=== PATIENT | female | born 1950 | race American Indian/Alaskan Native ===

== ENCOUNTER 2019-04-05 14:18 | Emergency (ER) | payer MEDICARE ==
[2019-04-05 14:42] VITALS: BP 129/83
--- NOTE | 2019-04-05 14:44 | Event Note ---
ED Screening Note Date of service: 04/05/19 Time: 14:38 ED Screening Note: 68 y/o comes in for epigastric pain with vomiting. Had a stress test on 03/26/19 at [facility]. Hard to swallow food not able to go alway down. This initial assessment/diagnostic orders/clinical plan/treatment(s) is/are subject to change based on patients health status, clinical progression and re- assessment by fellow clinical providers in the ED. Further treatment and workup at subsequent clinical providers discretion. Patient/guardian urged not to elope from the ED as their condition may be serious if not clinically assessed and managed. Initial orders include:
[2019-04-05 16:07] LABS: Hematocrit 47.7 % (30.3-42.9); Hemoglobin 16.2 gm/dl (10.1-14.3); Mean Corpuscular HGB Conc 34 % (30-34); Mean Corpuscular Volume 100 fl (79-97); Platelet Count 279 K/mm3 (140-440); Red Blood Count 4.79 M/mm3 (3.65-5.03); Red Cell Distribution Width 14.9 % (13.2-15.2)
[2019-04-05 16:30] LABS: Alanine Aminotransferase 41 units/L (7-56); Albumin 4.7 g/dL (3.9-5); BUN/Creatinine Ratio 13; Blood Urea Nitrogen 10 mg/dL (7-17); Calcium 10.2 mg/dL (8.4-10.2); Hemolysis Index 22
--- NOTE | 2019-04-05 21:12 | XRay Report ---
PROCEDURE: XR CHEST ROUTINE 2V TECHNIQUE: PA and lateral chest radiographs were obtained. HISTORY: chest pain COMPARISONS: None. FINDINGS: Heart: Normal. Mediastinum/Vessels: Normal. Lungs/Pleural space: Normal. Bony thorax: No acute osseous abnormality. IMPRESSION: Normal examination. This document is electronically signed by Justice Frias MD., April 05 2019 09:10:09 PM ET
== END 2019-04-05 19:43 | disposition left against medical advice (07) ==
LOC: ED 14:18
DX: R07.89 Other chest pain (principal); R06.02 Shortness of breath
CPT/HCPCS: 36415; 71046; 80053; 83690; 84484; 85027; 93005; 93010; 99283

== ENCOUNTER 2019-04-20 06:32 | Day surgery (SDC) | payer MEDICARE ==
[2019-04-20] MEDS: NACL 0.9% 500 ML 500 ML IV SCH ×3 (07:30→09:30)
[2019-04-20 07:31] LABS: Basophils # (Auto) 0.1 K/mm3 (0.0-0.1); Basophils % (Auto) 1.1 % (0.0-1.8); Eosinophils # (Auto) 0.1 K/mm3 (0.0-0.4); Hematocrit 43.2 % (30.3-42.9); Hemoglobin 14.7 gm/dl (10.1-14.3); Lymphocytes # (Auto) 0.9 K/mm3 (1.2-5.4); Lymphocytes % (Auto) 11.4 % (13.4-35.0); Mean Corpuscular HGB Conc 34 % (30-34); Mean Corpuscular Volume 99 fl (79-97); Monocytes # (Auto) 0.7 K/mm3 (0.0-0.8); Monocytes % (Auto) 8.5 % (0.0-7.3); Platelet Count 257 K/mm3 (140-440); Red Blood Count 4.36 M/mm3 (3.65-5.03); Red Cell Distribution Width 14.6 % (13.2-15.2)
[2019-04-20 07:41] LABS: INR 1.01 (0.87-1.13); Partial Thromboplastin Time 23.7 Sec. (24.2-36.6)
[2019-04-20 07:44] LABS: BUN/Creatinine Ratio 11; Blood Urea Nitrogen 9 mg/dL (7-17); Calcium 9.2 mg/dL (8.4-10.2); Hemolysis Index 95
[2019-04-20] MEDS ORDERED: ECOTRIN PO NR (08:00)
[2019-04-20] MEDS: CALAN ONE ×2 (09:11→09:39)
[2019-04-20] MEDS: VERSED ONE ×2 (09:11→09:36)
[2019-04-20] MEDS: XYLOCAINE 2% INFILTRATI ONE ×2 (09:11→09:37)
[2019-04-20] MEDS: SUBLIMAZE ONE ×2 (09:11→09:36)
[2019-04-20] MEDS: HEPARIN/NS 5000 UNIT/500ML(CATH LAB) 1,000 ML IR ONE ×2 (09:12→09:30)
[2019-04-20] MEDS: HEPARIN 10,000 UNITS/10 ML ONE ×2 (09:12→09:39)
[2019-04-20] MEDS: NITROGLYCERIN SYRINGE 3 ML ONE ×2 (09:13→09:39)
--- NOTE | 2019-04-20 10:05 | Discharge Summary ---
Short Stay Discharge Plan Activity: advance as tolerated Weight Bearing Status: Full Weight Bearing Diet: low fat, low cholesterol, low salt Wound: keep clean and dry Special Instructions: smoking cessation, no heavy lifting (3 days) Additional Instructions: STOP SMOKING ADVISED. Follow up with: RADHA REYNOLDS MD [Other] - 7 Days KACIE CHAIDEZ MD [Staff Physician] - 7 Days
--- NOTE | 2019-04-20 10:27 | Cardiac Catherization Report ---
REASON FOR PROCEDURE: The patient is a 69-year-old woman with hypertension and chronic tobacco abuse, who continues to smoke cigarettes. She presented with chest pain. She underwent an exercise thallium stress testing where she exercised for 6 minutes of a Juliocesar protocol, normal thallium. Despite the normal stress test, she continues to complain of chest pain, prompting a recommendation for cardiac catheterization. PROCEDURE: 1. Left heart catheterization. 2. Selective left and right coronary angiography. 3. Left ventricle angiography. 4. Sedation time, start 0936 hours, end 0950 hours. The patient was prepped and draped in a sterile fashion after informed consent. The right radial cath site was prepped and draped after a negative Blu's test. The right radial artery was entered using Seldinger technique followed by placement of a 6-Pashto hydrophilic sheath. Routine radial cocktail was administered via the sheath. Selective left and right coronary angiography was then performed, using a #3.5 left Chandra, and a #4 right Chandra. A pigtail catheter was used for left ventricle angiography. The catheters were removed, sheath removed and hemostasis achieved using a TR band. The patient was returned to the postprocedure unit in stable condition. There were no complications. FINDINGS: HEMODYNAMICS: Left ventricular end-diastolic pressure was 11. Ascending aortic pressure was 116/73. There was no significant pressure gradient on pullback across the aortic valve. CORONARY ANGIOGRAPHY: The left main coronary artery was free of significant disease. The left anterior descending artery and its diagonal branches were free of significant disease. A small to medium size ramus intermedius artery contained mild luminal irregularities. The circumflex system contained diffuse mild atherosclerosis of its proximal and mid segment, with no significant obstructive lesions. The right coronary artery was dominant. This vessel also contained diffuse mild atherosclerosis of its mid segment, with no significant obstructive lesions. Left ventricular systolic function was at lower limits of normal, ejection fraction 50-55%. CONCLUSION: 1. Mild diffuse nonobstructive atherosclerosis of the circumflex and right coronary arteries as above. 2. No significant obstructive coronary lesions on angiography. 3. Well preserved left ventricular systolic function, ejection fraction 50-55%. RECOMMENDATION: Aggressive risk factor modification, including strict recommendations for smoking cessation. [facility]# [id number] CA/NTS
[2019-04-20] MEDS ORDERED: NACL 0.9% 1000 ML 1,000 ML IV SCH (11:00)
[2019-04-20 15:31] VITALS: BP 126/85
== END 2019-04-20 16:05 | disposition home or self-care (01) ==
LOC: CATHLABREC 06:32
PROVIDERS: ATTEND Internal Medicine Cardiovascular Disease
DX: I25.10 Atherosclerotic heart disease of native coronary artery without angina pectoris (principal); I10 Essential (primary) hypertension; J44.9 Chronic obstructive pulmonary disease, unspecified; K21.9 Gastro-esophageal reflux disease without esophagitis; F17.210 Nicotine dependence, cigarettes, uncomplicated; M19.90 Unspecified osteoarthritis, unspecified site; Z90.710 Acquired absence of both cervix and uterus; Z85.89 Personal history of malignant neoplasm of other organs and systems; Z79.899 Other long term (current) drug therapy; Z98.890 Other specified postprocedural states; Z85.068 Personal history of other malignant neoplasm of small intestine
CPT/HCPCS: 36415; 80048; 85025; 85610; 85730; 93005; 93010; 93458; 99156; C1894; J1644; J2250; J3010; J7040; Q9967

== ENCOUNTER 2021-07-20 17:50 | Emergency (ER) | payer MEDICARE ==
[2021-07-20] MEDS ORDERED: ASPIRIN 325 MG TAB PO ONE (18:00)
--- NOTE | 2021-07-20 18:01 | Event Note ---
ED Screening Note Date of service: 07/20/21 Time: 18:00 ED Screening Note: 71-year-old -B[place] female presents to the emergency room complaining of difficulty breathing and chest pain. Patient states she has had this in the past and she ended up having a urinary tract infection. Patient denies any urinary symptoms at this time. It is noted that patient is in mild distress. This initial assessment/diagnostic orders/clinical plan/treatment(s) is/are subject to change based on patients health status, clinical progression and re- assessment by fellow clinical providers in the ED. Further treatment and workup at subsequent clinical providers discretion. Patient/guardian urged not to elope from the ED as their condition may be serious if not clinically assessed and managed. Initial orders include: Chest pain protocol has been initiated.
[2021-07-20] MEDS ORDERED: SODIUM CHLORIDE 0.9% 1000 ML 1,000 ML IV ONE (18:09)
[2021-07-20] MEDS ORDERED: MORPHINE 2 MG/1 ML INJ IV ONE (18:09)
[2021-07-20 18:53] LABS: Basophils # (Auto) 0.1 K/mm3 (0.0-0.1); Eosinophils % (Auto) 0.1 % (0.0-4.3); Hematocrit 43.9 % (30.3-42.9); Hemoglobin 14.5 gm/dl (10.1-14.3); Lymphocytes # (Auto) 0.8 K/mm3 (1.2-5.4); Lymphocytes % (Auto) 9.3 % (13.4-35.0); Mean Corpuscular HGB Conc 33 % (30-34); Mean Corpuscular Volume 100 fl (79-97); Monocytes # (Auto) 0.5 K/mm3 (0.0-0.8); Platelet Count 329 K/mm3 (140-440); Red Blood Count 4.39 M/mm3 (3.65-5.03); Red Cell Distribution Width 15.5 % (13.2-15.2)
[2021-07-20 18:56] LABS: Alanine Aminotransferase 35 units/L (7-56); Albumin 4.6 g/dL (3.9-5); BUN/Creatinine Ratio 9; Blood Urea Nitrogen 7 mg/dL (7-17); Calcium 10.3 mg/dL (8.4-10.2); Hemolysis Index 16
--- NOTE | 2021-07-20 18:56 | XRay Report ---
CHEST 2 VIEWS INDICATION / CLINICAL INFORMATION: Chest Pain. COMPARISON: 04/05/2019 FINDINGS: SUPPORT DEVICES: None. HEART / MEDIASTINUM: No significant abnormality. LUNGS / PLEURA: No significant pulmonary or pleural abnormality. No pneumothorax. ADDITIONAL FINDINGS: No significant additional findings. IMPRESSION: 1. No acute findings. Signer Name: Eduardo Ackerman MD Signed: 07/20/2021 6:51 PM Workstation Name: [id number]
--- NOTE | 2021-07-20 19:10 | Emergency Department Report ---
ED Chest Pain HPI - General Chief Complaint: Chest Pain Stated Complaint: CHEST PAIN/SOB Time Seen by Provider: 07/20/21 18:03 Source: patient Mode of arrival: Ambulatory Limitations: No Limitations - History of Present Illness Initial Comments: Patient is a 71-year-old F Estonian female with past medical history hypertension who is presenting with chest discomfort. Patient states that she woke up at approximately 8 AM and felt well. At 9 AM she started having chest pain which she states was a sharp pain in the center chest. Is worse with deep breathing. This is associated with shortness of breath. Patient also states she has some dizziness especially when she stands and she felt very shaky especially when this first started. Some of the shakiness is slightly better. Patient states she has a mild dry cough that is chronic. Patient has been vaccinated for COVID-19 and received 2 shots. -: Sudden Severity scale (0 -10): 8 Quality: sharp re: dyspnea. denies: nausea, vomting, diaphoresis Other Symptoms: denies: fever, syncope - Related Data Home Medications Medication Instructions Recorded Confirmed Last Taken Albuterol Sulfate [Ventolin HFA] 2 puff IH Q4H PRN 04/17/15 04/20/19 04/19/19 2 Gabapentin 600 mg PO TID 04/20/19 04/20/19 04/19/19 600 mg Sucralfate [Carafate] 1 gm PO BID 04/20/19 04/20/19 04/19/19 1 gm amLODIPine 10 mg PO DAILY 04/20/19 04/20/19 04/19/19 10 mg raNITIdine HCl [Zantac] 150 mg PO BID 04/20/19 04/20/19 04/19/19 150 mg Previous Rx's Medication Instructions Recorded Last Taken Type Famotidine [Pepcid] 40 mg PO QHS #10 tablet 07/20/21 Unknown Rx traMADoL [Ultram] 50 mg PO Q6HR PRN #12 tablet 07/20/21 Unknown Rx Allergies Allergy/AdvReac Type Severity Reaction Status Date / Time No Known Allergies Allergy Verified 04/17/15 13:46 Heart Score - HEART Score History: Slightly suspicious EKG: Non-specific Age: > 65 Risk factors: 1-2 risk factors Troponin: < normal limit HEART Score: 4 - EKG Read Time Time EKG Completed: 18:02 EKG Read Time: 18:02 ED Review of Systems ROS: Stated complaint: CHEST PAIN/SOB Other details as noted in HPI Comment: All other systems reviewed and negative ED Past Medical Hx - Past Medical History Previous Medical History?: Yes Hx Hypertension: Yes Hx GERD: Yes Hx Arthritis: Yes (neck) Hx COPD: Yes Additional medical history: Diverticulitis, hiatal hernia, neuropathy. Darions Syndrome - Surgical History Additional Surgical History: stress test 03/26/2019 - Social History Smoking Status: Current Every Day Smoker - Medications Home Medications: Home Medications Medication Instructions Recorded Confirmed Last Taken Type Albuterol Sulfate [Ventolin HFA] 2 puff IH Q4H PRN 04/17/15 04/20/19 04/19/19 History 2 Gabapentin 600 mg PO TID 04/20/19 04/20/19 04/19/19 History 600 mg Sucralfate [Carafate] 1 gm PO BID 04/20/19 04/20/19 04/19/19 History 1 gm amLODIPine 10 mg PO DAILY 04/20/19 04/20/19 04/19/19 History 10 mg raNITIdine HCl [Zantac] 150 mg PO BID 04/20/19 04/20/19 04/19/19 History 150 mg Famotidine [Pepcid] 40 mg PO QHS #10 tablet 07/20/21 Unknown Rx traMADoL [Ultram] 50 mg PO Q6HR PRN #12 tablet 07/20/21 Unknown Rx ED Physical Exam - General Limitations: No Limitations General appearance: alert, in distress (Patient appears very uncomfortable but is nontoxic appearing) - Head Head exam: Present: atraumatic, normocephalic - Eye Eye exam: Present: normal appearance. Absent: PERRL, EOMI - ENT ENT exam: Present: mucous membranes moist - Neck Neck exam: Present: normal inspection - Respiratory Respiratory exam: Present: normal lung sounds bilaterally. Absent: respiratory distress, wheezes, rales, rhonchi - Cardiovascular Cardiovascular Exam: Present: normal rhythm, tachycardia. Absent: systolic murmur, diastolic murmur, rubs, gallop - GI/Abdominal GI/Abdominal exam: Present: soft, normal bowel sounds. Absent: distended, tenderness, guarding, rebound - Extremities Exam Extremities exam: Present: normal inspection - Back Exam Back exam: Present: normal inspection - Neurological Exam Neurological exam: Present: alert, oriented X3 - Psychiatric Psychiatric exam: Present: normal affect, normal mood - Skin Skin exam: Present: warm, dry, intact, normal color. Absent: rash ED Course Vital Signs 07/20/21 07/20/21 17:55 19:58 Temperature 98.9 F Pulse Rate 132 H Respiratory 16 18 Rate Blood Pressure 129/86 [Right] O2 Sat by Pulse 96 Oximetry - Reevaluation(s) Reevaluation #1: 07/20/21 21:57 At this point the patient stating that most of her discomfort is in the left lower quadrant. Patient does have a history of hiatal hernia. Her symptoms may have been exacerbated by the steroids that she is taking. Patient is on a 10-day course. Patient has been ruled out at this time for pneumonia pulmonary embolus acute IN pericarditis. There is no abnormality to her electrolytes and CBC. Patient may have just had some increased pain associated with a hiatal hernia. Patient will be DC'd home with meds for pain. Because her heart score is 4 secondary to her age sent a referral to for the patient to see cardiology as a precaution. Symptoms may have 07/20/21 22:00 ED Medical Decision Making - Lab Data Result diagrams: 07/20/21 18:09 07/20/21 18:09 Lab Results 07/20/21 07/20/21 07/20/21 Range/Units 18:09 18:09 18:09 WBC 9.1 (4.5-11.0) K/mm3 RBC 4.39 (3.65-5.03) M/mm3 Hgb 14.5 H (10.1-14.3) gm/dl Hct 43.9 H (30.3-42.9) % MCV 100 H (79-97) fl MCH 33 H (28-32) pg MCHC 33 (30-34) % RDW 15.5 H (13.2-15.2) % Plt Count 329 (140-440) K/mm3 Lymph % (Auto) 9.3 L (13.4-35.0) % [place]ila % (Auto) 5.0 (0.0-7.3) % Eos % (Auto) 0.1 (0.0-4.3) % Baso % (Auto) 1.0 (0.0-1.8) % Lymph # (Auto) 0.8 L (1.2-5.4) K/mm3 Gila # (Auto) 0.5 (0.0-0.8) K/mm3 Eos # (Auto) 0.0 (0.0-0.4) K/mm3 Baso # (Auto) 0.1 (0.0-0.1) K/mm3 Seg Neutrophils % 84.6 H (40.0-70.0) % Seg Neutrophils # 7.7 (1.8-7.7) K/mm3 D-Dimer (0-234) ng/mlDDU Sodium 138 (137-145) mmol/L Potassium 3.6 (3.6-5.0) mmol/L Chloride 99.5 (98-107) mmol/L Carbon Dioxide 20 L (22-30) mmol/L Anion Gap 22 mmol/L BUN 7 (7-17) mg/dL Creatinine 0.8 (0.6-1.2) mg/dL Estimated GFR > 60 ml/min BUN/Creatinine Ratio 9 % Glucose 126 H (65-100) mg/dL Calcium 10.3 H (8.4-10.2) mg/dL Total Bilirubin 0.30 (0.1-1.2) mg/dL AST 82 H (5-40) units/L ALT 35 (7-56) units/L Alkaline Phosphatase 73 (35-129) units/L Troponin T < 0.010 (0.00-0.029) ng/mL Total Protein 8.6 H (6.3-8.2) g/dL Albumin 4.6 (3.9-5) g/dL Albumin/Globulin Ratio 1.2 % Lipase 63 H (13-60) units/L Urine Color (Yellow) Urine Turbidity (Clear) Urine pH (5.0-7.0) Ur Specific [place] (1.003-1.030) Urine Protein (Negative) mg/dL Urine Glucose (UA) (Negative) mg/dL Urine Ketones (Negative) mg/dL Urine Blood (Negative) Urine Nitrite (Negative) Urine Bilirubin (Negative) Urine Urobilinogen (<2.0) mg/dL Ur Leukocyte Esterase (Negative) Urine WBC (Auto) (0.0-6.0) /HPF Urine RBC (Auto) (0.0-6.0) /HPF U Epithel Cells (Auto) (0-13.0) /HPF Urine Mucus /HPF 07/20/21 07/20/21 07/20/21 Range/Units 18:15 20:14 Unknown WBC (4.5-11.0) K/mm3 RBC (3.65-5.03) M/mm3 Hgb (10.1-14.3) gm/dl Hct (30.3-42.9) % MCV (79-97) fl MCH (28-32) pg MCHC (30-34) % RDW (13.2-15.2) % Plt Count (140-440) K/mm3 Lymph % (Auto) (13.4-35.0) % Gila % (Auto) (0.0-7.3) % Eos % (Auto) (0.0-4.3) % Baso % (Auto) (0.0-1.8) % Lymph # (Auto) (1.2-5.4) K/mm3 [place] # (Auto) (0.0-0.8) K/mm3 Eos # (Auto) (0.0-0.4) K/mm3 Baso # (Auto) (0.0-0.1) K/mm3 Seg Neutrophils % (40.0-70.0) % Seg Neutrophils # (1.8-7.7) K/mm3 D-Dimer 185.46 (0-234) ng/mlDDU Sodium (137-145) mmol/L Potassium (3.6-5.0) mmol/L Chloride (98-107) mmol/L Carbon Dioxide (22-30) mmol/L Anion Gap mmol/L BUN (7-17) mg/dL Creatinine (0.6-1.2) mg/dL Estimated GFR ml/min BUN/Creatinine Ratio % Glucose (65-100) mg/dL Calcium (8.4-10.2) mg/dL Total Bilirubin (0.1-1.2) mg/dL AST (5-40) units/L ALT (7-56) units/L Alkaline Phosphatase (35-129) units/L Troponin T < 0.010 (0.00-0.029) ng/mL Total Protein (6.3-8.2) g/dL Albumin (3.9-5) g/dL Albumin/Globulin Ratio % Lipase (13-60) units/L Urine Color Yellow (Yellow) Urine Turbidity Clear (Clear) Urine pH 6.0 (5.0-7.0) Ur Specific [place] 1.014 (1.003-1.030) Urine Protein 30 mg/dl (Negative) mg/dL Urine Glucose (UA) Neg (Negative) mg/dL Urine Ketones Neg (Negative) mg/dL Urine Blood Neg (Negative) Urine Nitrite Neg (Negative) Urine Bilirubin Neg (Negative) Urine Urobilinogen 2.0 (<2.0) mg/dL Ur Leukocyte Esterase Neg (Negative) Urine WBC (Auto) 1.0 (0.0-6.0) /HPF Urine RBC (Auto) 1.0 (0.0-6.0) /HPF U Epithel Cells (Auto) 5.0 (0-13.0) /HPF Urine Mucus 1+ /HPF - EKG Data -: EKG Interpreted by Nh - EKG Data 07/20/21 19:39 EKG shows sinus tachycardia with a rate of 120. [place] normal intervals are normal. Occasional PVCs. No ST segment elevations or depressions. - Radiology Data Patient: SURI HUDSON MR#: [id number] : 1950 Acct:[id number] Age/Sex: 71 / F ADM Date: 07/20/21 Loc: ED Attending Dr: Ordering Physician: KERMIT DENNEY Date of Service: 07/20/21 Procedure(s): XR chest routine 2V Accession Number(s): [id number] cc: KERMIT DENNEY Fluoro Time In Minutes: CHEST 2 VIEWS INDICATION / CLINICAL INFORMATION: Chest Pain. COMPARISON: 04/05/2019 FINDINGS: SUPPORT DEVICES: None. HEART / MEDIASTINUM: No significant abnormality. LUNGS / PLEURA: No significant pulmonary or pleural abnormality. No pneumothorax. ADDITIONAL FINDINGS: No significant additional findings. IMPRESSION: 1. No acute findings. Signer Name: Eduardo Ackerman MD Signed: 07/20/2021 6:51 PM Workstation Name: [email or web address] [email or web address] Critical care attestation.: If time is entered above; I have spent that time in minutes in the direct care of this critically ill patient, excluding procedure time. ED Disposition Clinical Impression: Atypical chest pain, GERD (gastroesophageal reflux disease) Disposition: 01 HOME / SELF CARE / HOMELESS Is pt being admited?: No Does the pt Need Aspirin: No Condition: Stable Instructions: Nonspecific Chest Pain, Adult, Gastroesophageal Reflux Disease, Adult, [id number] Additional Instructions: You have been ruled out for an acute heart attack. Your symptoms are not consistent with heart disease however as a precaution a referral to a bosom presser has been sent. They will contact you for an appointment. Also please follow-up with your primary care physician Referrals: MIGUEL ANGEL MENG MD [Staff Physician] - 3-5 Days Time of Disposition: 21:59
[2021-07-20 20:30] LABS: Bilirubin,Urine NEG (Negative); Blood,Urine NEG (Negative); Color,Urine Yellow (Yellow); Mucus,Urine 1+ /HPF
--- NOTE | 2021-07-20 21:17 | Cat Scan Report ---
CTA CHEST WITH IV CONTRAST INDICATION / CLINICAL INFORMATION: pleuritic cp. TECHNIQUE: Axial CT images were obtained through the chest after injection of 100 mL IV contrast. 3 plane MIP an d/or 3D reconstructions were produced. All CT scans at this location are performed using CT dose redu ction for [facility] by means of automated exposure control. COMPARISON: Chest radiograph 07/20/2021 FINDINGS: PULMONARY ARTERIES: No pulmonary emboli. THORACIC AORTA: No significant abnormality. HEART: No significant abnormality. CORONARY ARTERIES: No significant calcification. PLEURA: No pleural effusion. No pneumothorax. LYMPH NODES: No significant adenopathy. LUNGS: No acute air space or interstitial disease. ADDITIONAL FINDINGS: A benign appearing mass is present in the inferior right breast. The mass contai ns a biopsy clip. UPPER ABDOMEN: No acute findings. SKELETAL STRUCTURES: No significant osseous abnormality. IMPRESSION: 1. No CT evidence for pulmonary embolism. 2. No acute pulmonary or pleural disease. Signer Name: Vickie You MD Signed: 07/20/2021 9:13 PM Workstation Name: [id number]
[2021-07-20] MEDS ORDERED: FAMOTIDINE 20 MG/2 ML INJ IV ONE (21:28)
[2021-07-20] MEDS ORDERED: ALUM-MAG HYDROXIDE-SIMETHICONE 200-200-20MG/5ML ORAL LIQD 30 ML PO ONE (21:28)
[2021-07-20] MEDS ORDERED: FAMOTIDINE 20 MG TAB PO ONE (21:42)
[2021-07-20 23:16] VITALS: BP 161/96
--- NOTE | 2021-07-23 10:51 | Electrocardiograph Report ---
[facility] Test Date: 2021-07-20 Test Time: 18:02:59 Pat Name: SURI HUDSON Department: Room: Gender: F Patient Financial Representative: FABIENNE : 1950 Requested By: SOULEYMANE WALDRON Order Number: [id number] Reading MD: Iftikhar Morgan Measurements Intervals [place] Rate: 120 P: 71 [place]: 146 QRS: 71 QRSD: 83 T: 261 QT: 318 QTc: 446 Interpretive Statements Sinus tachycardia Multiple ventricular premature complexes non specific st-t No previous ECG available for comparison Electronically Signed On 07-23-2021 10:51:10 EDT by Iftikhar Morgan
== END 2021-07-20 22:50 | disposition home or self-care (01) ==
LOC: ED 17:50
DX: R07.89 Other chest pain (principal); K21.9 Gastro-esophageal reflux disease without esophagitis; I10 Essential (primary) hypertension; J44.9 Chronic obstructive pulmonary disease, unspecified; M19.90 Unspecified osteoarthritis, unspecified site; K57.92 Diverticulitis of intestine, part unspecified, without perforation or abscess without bleeding; G62.9 Polyneuropathy, unspecified; K44.9 Diaphragmatic hernia without obstruction or gangrene; F17.200 Nicotine dependence, unspecified, uncomplicated
CPT/HCPCS: 36415; 71046; 71275; 80053; 81001; 83690; 84484; 85025; 85379; 93005; 96361; 96374; 99284; J2270; J7030; Q9967